=== PATIENT | female | born 1935 | race Caucasian/White ===

== ENCOUNTER → 2018-11-05 12:56 | Outpatient (POV) | payer MEDICARE, SELFPAY ==
[2018-11-05 14:00] VITALS: BP 178/87; PULSE 69; RESP 18; O2SAT 99; BMI 25.0
--- NOTE | 2018-11-06 08:51 | P.PCN_ITS ---
- Procedure Date: 11/06/18 Time: 13:30 Anesthesiologist:: Pattie Contreras APRN Complications:: None Pre-procedure Diagnosis:: Degenerative disc disease lumbar spine with lumbar radiculopathy Post-procedure Diagnosis:: Same Indications for Procedure:: Patient is a pleasant 83-year-old white female who presents today for intrathecal pain pump adjustment. Patient had a catheter revision on 1211 and she was overmedicated afterwards having nausea and vomiting. She is currently at 0.1 mg of Dilaudid a day. We will increase her today. She rates her pain 8 out of 10 Physical Exam General: Alert and oriented x3, no acute distress, pleasant and cooperative, [on room air] Lungs: Resps E/U, Symmetrical chest expansion, Eyes: PERRL Musculoskeletal: Flexion and extension of lumbar spine somewhat guarded secondary to pain, deep tendon reflexes normal, strength in upper and lower extremities [5/5], [abnormal gait noted] Neurological: speech clear, computer systems information director equal, no gross sensory deficits Procedure Details:: Informed consent was obtained and the risk and benefits of the procedure were explained to the patient. The patient was taken to the procedure room where noninvasive monitoring was placed including noninvasive blood pressure cuff and pulse oximeter. Patient's pump was interrogated. The infusion rate was increased to 0.125 mg/day. The patient tolerated the procedure well. Plan and Disposition:: We will follow-up with this patient next week at her arranged appointment in [place]. Patient's been instructed to call the office if she has any issues prior to her next appointment. This note was dictated using voice recognition software and may contain errors or omissions
== END ==
PROVIDERS: Visit Provider Clinical Nurse Specialist Family Health
DX: M51.16 Intervertebral disc disorders with radiculopathy, lumbar region (principal)
CPT/HCPCS: 62368